=== PATIENT | female | born 1980 | race Caucasian/White ===

== ENCOUNTER → 2019-12-17 11:59 | Outpatient (BNVA) | payer OTHER, SELFPAY | PROVIDERS: Family Provider Family Medicine; Visit Provider Nurse Practitioner Family | DX: M79.672 Pain in left foot (principal); S92.352A Displaced fracture of fifth metatarsal bone, left foot, initial encounter for closed fracture | CPT/HCPCS: 73630 ==

== ENCOUNTER → 2019-12-18 08:45 | Outpatient (BNVA) | payer OTHER, SELFPAY | PROVIDERS: Family Provider Family Medicine; Referring Provider Nurse Practitioner Family; Visit Provider Podiatrist Foot & Ankle Surgery | DX: S92.352A Displaced fracture of fifth metatarsal bone, left foot, initial encounter for closed fracture (principal) | CPT/HCPCS: 73630 ==

== ENCOUNTER → 2020-01-06 10:19 | Outpatient (BNVA) | payer OTHER, SELFPAY | PROVIDERS: Family Provider Family Medicine; Visit Provider Podiatrist Foot & Ankle Surgery | DX: S92.352D Displaced fracture of fifth metatarsal bone, left foot, subsequent encounter for fracture with routine healing (principal); W10.9XXD Fall (on) (from) unspecified stairs and steps, subsequent encounter | CPT/HCPCS: 73630 ==

== ENCOUNTER → 2020-01-27 08:57 | Outpatient (BNVA) | payer OTHER, SELFPAY | PROVIDERS: Family Provider Family Medicine; Visit Provider Podiatrist Foot & Ankle Surgery | DX: S92.352A Displaced fracture of fifth metatarsal bone, left foot, initial encounter for closed fracture (principal) | CPT/HCPCS: 73630 ==

== ENCOUNTER → 2020-02-10 10:02 | Outpatient (BNVA) | payer OTHER, SELFPAY | PROVIDERS: Family Provider Family Medicine; Visit Provider Podiatrist Foot & Ankle Surgery | DX: S92.352A Displaced fracture of fifth metatarsal bone, left foot, initial encounter for closed fracture (principal) | CPT/HCPCS: 73630 ==

== ENCOUNTER → 2020-02-17 08:50 | Outpatient (BNVA) | payer OTHER, SELFPAY | PROVIDERS: Family Provider Family Medicine; Visit Provider Podiatrist Foot & Ankle Surgery | DX: Z11.59 Encounter for screening for other viral diseases (principal); S92.352A Displaced fracture of fifth metatarsal bone, left foot, initial encounter for closed fracture | CPT/HCPCS: 87635 ==

== ENCOUNTER 2020-02-21 05:56 | Day surgery (SDC) | payer OTHER, SELFPAY ==
[2020-02-20 14:18] VITALS: BMI 20.7
--- NOTE | 2020-02-21 | SCC_ITS ---
Procedure Done: Open reduction internal fixation left fifth metatarsal fracture CPT code 71547 7 seconds of fluoroscopic guidance, for a cumulative dose of 0.1 mGy, was provided to Dr. Honeycutt by the radiology department. C-arm images of the LEFT foot were saved for the patient's permanent record. [facility]
--- NOTE | 2020-02-21 06:19 | ANES.PREANE2 ---
Pre-Anesthetic Assessment Pre-Anesthetic Assessment: Height/Weight: Height 1.75 m Weight 63.503 kg Preop Diagnosis: Left fifth metatarsal fracture Proposed Procedure: Operation Date: 02/21/20 07:00 Proposed Procedures p Open reduction internal fixation left fifth metatarsal fracture CPT code 58843 displaced fracture of fifth metatarsal bone, left foot S92.352A(Left) - Abdiel Honeycutt DPM Familial anesthetic complications: None Was Beta Ángela taken within 24 hours: N/A Last intake: Intake Last Liquid Date 02/20/20 Last Liquid Time 19:00 Last Solid Date 02/20/20 Last Solid Time 17:30 Social: Comment: vapes Exam: Pre-Anes Outpt Exam: alert, oriented x 3, clear to auscultation bilaterally and regular rate & rhythm Airway: Cervical ROM: WNL MP: 2 Dentition: Full Neuropsych: Neuropsych: Anxiety Anesthetic Plan: ASA status: 2 Anesthesia: MAC Risk of > 500 ml blood loss (7ml/kg in children): No PFSH Anesthesia PFSH: Medical History No pertinent past medical history Social History Smoking and tobacco status: never smoked Alcohol intake: never Data Anesthesia Cardiac Studies: No Data to Display
[2020-02-21] MEDS: sodium chloride 0.9% 1,000 ML 30 ML IV (06:38)
--- NOTE | 2020-02-21 06:41 | P.HPUD_ITS ---
Surgery/Procedure H&P Update DATE OF PROCEDURE: February 21, 2020 DATE H&P PERFORMED: 02/10/20 H&P UPDATE INFORMATION: I have reviewed H&P completed within last 30 days, I have examined patient prior to procedure, No changes to prior documentation and H&P is in [facility] EMR on date indicated PREOP DIAGNOSIS: Left fifth metatarsal fracture PLANNED PROCEDURE: Operation Date: 02/21/20 07:00 Proposed Procedures p Open reduction internal fixation left fifth metatarsal fracture CPT code 29309 displaced fracture of fifth metatarsal bone, left foot S92.352A(Left) - Abdiel Honeycutt DPM
--- NOTE | 2020-02-21 06:44 | ANES.PREANE2 ---
Pre-Anesthetic Assessment Pre-Anesthetic Assessment: Height/Weight: Height 1.75 m Weight 63.503 kg Preop Diagnosis: Left fifth metatarsal fracture Proposed Procedure: Operation Date: 02/21/20 07:00 Proposed Procedures p Open reduction internal fixation left fifth metatarsal fracture CPT code 70968 displaced fracture of fifth metatarsal bone, left foot S92.352A(Left) - Abdiel Honeycutt, DPM Was Beta Ángela taken within 24 hours: N/A Last intake: Intake Last Liquid Date 02/20/20 Last Liquid Time 19:00 Last Solid Date 02/20/20 Last Solid Time 17:30 Social: Social History: No alcohol and No tobacco Exam: Pre-Anes Outpt Exam: alert, oriented x 3, clear to auscultation bilaterally and regular rate & rhythm Airway: Submandibular: WNL Cervical ROM: WNL MP: 1 History/ROS: No significant complaints Pulmonary: Pulmonary: None reported CV/HEM: CV/HEM: None reported : : None reported Hepatic: Hepatic: None reported GI: GI: None reported Metabolic: Metabolic: None reported Musc/skel: Musc/skel: None reported Neuropsych: Neuropsych: Anxiety and Depression Anesthetic Plan: ASA status: 2 Anesthesia: MAC Meds/Allergies Current Medications: Current Medications Generic Name Dose Route Start Last Admin Trade Name Freq PRN Reason Stop Dose Admin Sodium Chloride 1,000 mls @ 30 ml s/hr 02/21/20 06:15 02/21/20 06:38 Sodium Chloride 0.9% IV 02/22/20 06:14 30 mls/hr .Q24H ANGELLA Administration PFSH Anesthesia PFSH: Medical History No pertinent past medical history Social History Smoking and tobacco status: never smoked Alcohol intake: never Data Anesthesia Cardiac Studies: No Data to Display
--- NOTE | 2020-02-21 07:23 | SC_ITS ---
WS: [id number] Exam: C-arm Mini [id number] Date/Time of Exam: 02/21/2020 7:23 AM Reason For Exam: fractured foot AP and lateral C-arm images of the left foot are submitted for evaluation. There is a plate and screw fixation involving a fracture at the distal third of the fifth metatarsal. Alignment appears anatomic for healing. Orthopedic hardware appears to be in good position. TX/C-arm Mini [id number] IMPRESSION: 1. Satisfactory internal orthopedic fixation involving a fracture of the distal fifth metatarsal.
--- NOTE | 2020-02-21 07:30 | SUR.OPER ---
0658 pt did not get a test, she stated that she was positive she was not and just got off her period. pt stated that she wanted to proceed without a test because she was sure she was not . anesthesia and surgeon accomodated pts request.
[2020-02-21 08:17] VITALS: BP 112/70; PULSE 74; RESP 16; TEMP 36.4; O2SAT 99
--- NOTE | 2020-02-21 08:19 | ANE.PACU2 ---
Inpatient post-anesthesia follow up: Airway intact: Yes Vital signs: Temperature 97.5 F Pulse Rate 74 Respiratory Rate 16 Blood Pressure 112/70 Pulse Oximetry 99 Oxygen Delivery Me thod Room Air Oxygen Flow Rate Fraction of Inspir ed Oxygen Hydration adequate: Yes Pain level: 2 Mental status: Baseline
--- NOTE | 2020-02-21 08:25 | XR_ITS ---
WS: [id number] Left foot, 3 views, 02/21/2020 Clinical Data: post op Comparison: Left foot, 02/10/2020. Findings: The fracture of the distal third of the left fifth metatarsal has been reduced with the aid of a smal l orthopedic plate with multiple screws. XR/XR foot LT min 3V* [id number] Impression: Satisfactory internal fixation of left fifth metatarsal fracture.
[2020-02-21 08:57] VITALS: BP 129/77; PULSE 60; RESP 22; O2SAT 100
[2020-02-21] MEDS: CLONazepam 0.5 mg Tablet PO (09:08)
--- NOTE | 2020-02-21 10:44 | P.OP_ITS ---
Operative Report Date of procedure: February 21, 2020 Pre-op Diagnosis: Left fifth metatarsal fracture Post-op diagnosis: same Procedure Done: Open reduction internal fixation left fifth metatarsal fracture CPT code 60558 Implants: Arthrex 1 cc Allosync bone matrix 2.4 5-hole locking straight plate by Arthrex Arthrex 2.4 mm x 10 mm cortical screw x2 Arthrex 2.4 x 12 mm cortical screw Arthrex 2.4 x 12 mm locking screw Arthrex 2.4 x 10 mm locking screw Arthrex 2.4 x 14 mm locking screw 3-0 Vicryl, 4-0 Vicryl, 4-0 nylon Injectables: 20 cc of Exparel postoperatively per supervisor meter repair shop recommendations and technique subcutaneously at the operative site. Specimens removed/disposition: None Pathology: none sent Surgeon: Abdiel Delong Hearing Aid Repair Technician: Annette Anesthesia: MAC Estimated blood loss: 10 mL Tourniquet time: 53 minutes IV fluids: None Urine output: 0 Condition: stable Disposition: PACU Brief History: Patient is a pleasant 39-year-old female 2 months out from left fifth metatarsal fracture with nonunion, no appreciable interval healing on x- ray with persistent pain on the left foot she has been compliant with weightbearing status was immobilized and was nonweightbearing for 6 weeks transition to protected weightbearing for an additional 2 weeks and has not been able to appreciate any healing or relief in pain. Recommended ORIF of the fracture at this point as conservative measures have failed not withstanding her strict adherence to medical advice and instruction. Risks include pain, bleeding, numbness, infection, hardware failure, hardware irritation, continued nonhealing, malunion, nonunion, delayed union, need for further surgical intervention, damage to adjacent soft tissue structures, surgical site dehiscence, bruising and swelling. Procedure: Under mild sedation the patient was brought to the operating room and placed on the operating table in supine position. A timeout was performed. Anesthesia was administered by the anesthesia service. Well-padded pneumatic tourniquet applied to the left ankle. Left lower extremity was scrubbed, prepped and draped utilizing normal aseptic technique. Left foot was then examined a weighted with an Esmarch bandage and the tourniquet inflated to 250 mmHg. Attention was directed to the left foot where a reverse Dong block was performed utilizing 20 cc of 0.5% Marcaine plain. A linear incision was made to the dorsal aspect of the left fifth metatarsal extending from the metatarsal head proximally to mid diaphysis, skin incision performed with #15 blade with a combination of sharp and blunt dissection carried down through subcutaneous tissue and periosteum, care was taken to retract and preserve neurovascular and tendinous structures. All bleeders were ligated and cauterized as necessary. Periosteal incision was made and fracture site was appreciated there was no significant healing, fracture was still mobile, this was mobilized and distracted and curetted at both proximal and distal aspect of the fracture site with a bone curette and pick. Fracture site was then irrigated with copious months of sterile saline solution. This was reduced and temporarily held with bone reduction forceps. Next utilizing standard AO technique a Arthrex 5 hole locking plate was utilized to fixate the fracture site utilizing a combination of locking and nonlocking screws as well as a interfragmentary screw from lateral to medial with excellent bony apposition and compression noted. Temporary fixation was removed fracture site was noted to be rigid and a stable construct, hardware placement confirmed and noted to be excellent with 3 views of intraoperative fluoroscopy. Incision site was flushed with copious amount of sterile saline solution. Periosteum was closed with 3-0 Vicryl. Subcutaneous closed with 4-0 Vicryl and skin closed with 4-0 nylon. 20 cc of Exparel injected subcutaneously at the operative site per supervisor meter repair shop recommendations on package insert. Incision site was dressed with Adaptic, sterile 4 x 4, Kerlix and Rikki wrap. Cam boot was applied to the left lower extremity. Tourniquet was deflated and a prompt hyperemic response was noted to the distal digits of the left foot. Patient tolerated procedure well and was transferred to the PACU with vital signs stable and vascular status intact. Following a period of postoperative monitoring she will be discharged home is to remain nonweightbearing to the left foot, is to elevate her left foot at all times. She was prescribed hydrocodone 10/325 mg to be taken every 4 hours as needed for pain. She was discharged with her who will be assisting her in her postoperative recovery. Patient will follow up in podiatry clinic 02/28/2020.
--- NOTE | 2020-02-21 13:22 | SCC_ITS ---
Procedure Done: Open reduction internal fixation left fifth metatarsal fracture CPT code 19024 7 seconds of fluoroscopic guidance, for a cumulative dose of 0.1 mGy, was provided to Dr. Honeycutt by the radiology department. C-arm images of the LEFT foot were saved for the patient's permanent record. [facility]
--- NOTE | 2020-02-21 14:36 | ANE.PACU2 ---
Inpatient post-anesthesia follow up: Airway intact: Yes Vital signs: Temperature 97.5 F Pulse Rate 60 Respiratory Rate 22 Blood Pressure 129/77 Pulse Oximetry 100 Oxygen Delivery Me thod Room Air Oxygen Flow Rate Fraction of Inspir ed Oxygen Hydration adequate: Yes Nausea and vomiting: No Pain level: 3 Mental status: Baseline
== END 2020-02-21 09:15 | disposition home or self-care (01) ==
PROVIDERS: PCP Family Medicine; Visit Provider Podiatrist Foot & Ankle Surgery
PROC: (CPT 28485; principal; 2020-02-21 07:00)
DX: S92.352A Displaced fracture of fifth metatarsal bone, left foot, initial encounter for closed fracture (principal); X58.XXXA Exposure to other specified factors, initial encounter; F17.290 Nicotine dependence, other tobacco product, uncomplicated
CPT/HCPCS: 28485; C1889; 12345; 73630; 76000; C1713; C9290; C9359; J0690; J2704; J3010; J3490; J7030

== ENCOUNTER → 2020-03-10 09:53 | Outpatient (BNVA) | payer OTHER, SELFPAY | PROVIDERS: PCP Family Medicine; Visit Provider Podiatrist Foot & Ankle Surgery | DX: Z48.89 Encounter for other specified surgical aftercare (principal) | CPT/HCPCS: 73630 ==

== ENCOUNTER → 2020-03-27 09:38 | Outpatient (BNVA) | payer OTHER, SELFPAY | PROVIDERS: PCP Family Medicine; Visit Provider Podiatrist Foot & Ankle Surgery | DX: Z48.89 Encounter for other specified surgical aftercare (principal); Z98.890 Other specified postprocedural states | CPT/HCPCS: 73630 ==

== ENCOUNTER → 2020-04-15 08:19 | Outpatient (BNVA) | payer OTHER, SELFPAY | PROVIDERS: PCP Family Medicine; Visit Provider Podiatrist Foot & Ankle Surgery | DX: M79.672 Pain in left foot (principal) | CPT/HCPCS: 73630 ==

== ENCOUNTER → 2020-04-29 08:55 | Outpatient (BNVA) | payer OTHER, SELFPAY | PROVIDERS: PCP Family Medicine; Visit Provider Podiatrist Foot & Ankle Surgery | DX: Z48.89 Encounter for other specified surgical aftercare (principal); M79.672 Pain in left foot | CPT/HCPCS: 73630 ==

== ENCOUNTER → 2020-06-01 09:13 | Outpatient (BNVA) | payer OTHER, SELFPAY | PROVIDERS: PCP Family Medicine; Visit Provider Podiatrist Foot & Ankle Surgery | DX: Z47.89 Encounter for other orthopedic aftercare (principal); M79.672 Pain in left foot; S92.352D Displaced fracture of fifth metatarsal bone, left foot, subsequent encounter for fracture with routine healing; X58.XXXD Exposure to other specified factors, subsequent encounter | CPT/HCPCS: 73630 ==

== ENCOUNTER → 2022-07-25 09:48 | Outpatient (BNVA) | payer OTHER, SELFPAY | PROVIDERS: PCP Family Medicine; Visit Provider Emergency Medicine | DX: S90.32XA Contusion of left foot, initial encounter (principal); X58.XXXA Exposure to other specified factors, initial encounter | CPT/HCPCS: 73630 ==